=== PATIENT | female | born 1955 | race Hispanic/Latino ===

== ENCOUNTER 2021-04-02 22:56 | Emergency (ER) | payer MEDICARE ==
[~2021-04-02] VITALS: Ht 149.9 cm; Wt 86.2 kg
[2021-04-02 23:00] VITALS: BP 189/110
[2021-04-03] MEDS ORDERED: DiphenhydrAMINE HCL 50 MG/ML VIAL IV ONE (01:00)
[2021-04-03] MEDS ORDERED: FAMOTIDINE 20MG VIAL IV ONE (01:00)
[2021-04-03] MEDS ORDERED: SOLU-MEDROL 125MG VIAL IVP ONE (01:00)
[2021-04-03] MEDS ORDERED: METH4TAB3 PO (02:28)
[2021-04-03] MEDS ORDERED: HYDR25CA PO (02:28)
[2021-04-03 02:42] VITALS: BP 159/83
== END 2021-04-03 02:47 | disposition home or self-care (01) ==
LOC: EDH 22:56
DX: T63.461A Toxic effect of venom of wasps, accidental (unintentional), initial encounter (principal); T63.441A Toxic effect of venom of bees, accidental (unintentional), initial encounter; R22.31 Localized swelling, mass and lump, right upper limb; E11.9 Type 2 diabetes mellitus without complications; E78.00 Pure hypercholesterolemia, unspecified; I10 Essential (primary) hypertension; Z79.899 Other long term (current) drug therapy; Y92.89 Other specified places as the place of occurrence of the external cause
CPT/HCPCS: 96374; 96375 ×2; 99284; J1200; J2930; J3490